=== PATIENT | female | born 1985 | race African-American/Black ===

== ENCOUNTER 2020-03-28 05:05 | Inpatient (IN) | payer OTHER, MEDICAID, SELFPAY ==
[2020-03-28] VITALS (296 sets, daily range): BP systolic 92–159; BP diastolic 43–110; PULSE 56–169; TEMP 35.9–37.1; O2SAT 69–100; BMI 38.4
--- NOTE | 2020-03-28 05:44 | LDADM ---
This patient, Alcira Banegas, was admitted to Labor/Delivery/Recovery [facility] on 03/28/20 at 05:05. Plans for labor, pain management and were discussed with patient. Patient/family oriented to hospital policies and general routines including ID bracelet, bed and alarms, visiting hours, pain management, procedures, bathroom and other care routines, personal items, smoking policy, room service/diet and guest tray routines, security routines, and visiting hours. Patient/Family are encouraged to report perceived risks to care and to ask questions if they do not understand what they are told or what they should do. See OBIX for further documentation.
[2020-03-28 05:49] LABS: Basophils Percent Auto 0.2 % (0.2-1.2); Eosinophils Absolute Auto 0.1 K/mm3 (0-0.3); Eosinophils Percent Auto 0.9 % (0-4.4); Hematocrit 36.7 % (37.0-47.0); Immature Granulocyte Absolute 0.08 K/mm3 (0.00-0.031); Immature Granulocyte Percent A 0.9 % (0-0.5); Lymphocytes Absolute Auto 2.66 K/mm3 (0.9-3.2); Lymphocytes Percent Auto 28.6 % (18.3-44.2); Mean Corpuscular HGB Conc 32.7 g/dl (32-36); Mean Corpuscular Hemoglobin 28.2 pg (26-34); Mean Corpuscular Volume 86.2 fl (80-100); Mean Platelet Volume 10.4 fl (7.4-10.4); Monocytes Percent Auto 11.1 % (2.6-8.5); Neutrophils Absolute Auto 5.4 K/mm3 (1.3-6.7); Neutrophils Percent Auto 58.3 % (45.5-73.1); Platelet Count Result 277 k/mm3 (150-375); Red Blood Count 4.26 M/mm3 (4.2-5.4); Red Cell Distribution Width 13.5 % (11.5-14.5); White Blood Count 9.3 K/mm3 (4.5-10.0)
[2020-03-28] MEDS: OXYTOCIN 30 UNITS/NS 500 ML 30 UNITS/500 ML BAG 6 UNITS IV CONT (05:53)
[2020-03-28] MEDS: LACTATED RINGERS 1,000 ML 125 ML IV CONT ×3 (05:54→11:11)
[2020-03-28 06:02] LABS: Alanine Aminotransferase 17 U/L (4-35); Albumin Level 3.5 g/dL (3.5-5.1); Alkaline Phosphatase 221 U/L (38-126); Anion Gap 7 mmol/L (8-16); Aspartate Amino Transferase 23 U/L (14-36); Bilirubin,Total 0.3 mg/dL (0.2-1.3); Blood Urea Nitrogen 10 mg/dL (7-17); Calcium 9.3 mg/dL (8.4-10.2); Carbon Dioxide 23 mmol/L (22-30); Chloride 104 mmol/L (98-107); Estimated CRCL calculation 97 ml/min; Estimated Glomerular Filt Rate > 60; Glucose 96 mg/dL (65-105); Sodium 134 mmol/L (137-145); Uric Acid 6.4 mg/dL (2.5-7.5)
--- NOTE | 2020-03-28 06:30 | PM.IMHP ---
H&P: HPI History of Present Illness Date/Time: 03/28/20 06:30 Chief complaint: Induction of labor Narrative: Alcira Banegas is a 35 year old female whose last menstrual period 06/22/2019, EDC is 03/28/2020 presents 40 weeks gestation for induction of labor. has been uncomplicated except she is positive for group B strep pending be prophylaxed. The blood pressures have been mildly elevating. She has a history of HSV but has seen no lesions and been on acyclovir 400 daily prevention. Review of Systems Review of Systems: All systems reviewed & are unremarkable except as noted in HPI and below PMFSH Past Medical History Medical History Acid reflux Allergic asthma HPV (human papilloma virus) infection Family History Family History Mother Hypertension Father Diabetes mellitus Social History Social History Smoking status: Never smoker Second hand tobacco smoke exposure: No Alcohol intake: current Drinks per week: 1 Substance use: never Substance use type: does not use Gender identity (if verbalized by the patient): Female Spiritual care concerns: No Meds Home Medications and Allergies Home Medications Medication Instructions Recorded Confirmed Type albuterol sulfate 90 mcg/actuation 1 puff INHALATION Q4H PRN 06/25/19 02/26/20 History aerosol inhaler PNV cmb#95-ferrous fumarate-FA 1 tablet PO DAILY 02/26/20 02/26/20 History [] Allergies Allergy/AdvReac Type Severity Reaction Status Date / Time Penicillins Allergy Mild hives Verified 06/25/19 16:19 Vital Signs Vital Signs - 24 hr 03/28/20 05:55 03/28/20 06:00 03/28/20 06:01 Temperature 97.7 F Pulse Rate 81 89 Blood Pressure 141/97 H 144/98 H Exam Const: General: no acute distress Eyes: General: appearance normal, both eyes and all related structures Neck: Neck: supple and no JVD Thyroid: thyroid normal Resp: Effort & Inspection: normal respiratory effort Auscultation: clear to auscultation bilaterally Cardio: Rate: regular rate Rhythm: regular rhythm GI: Inspection: non-distended GI Palp: Yes Soft to palpation, No Tenderness to palpation present (GI) and No Guarding due to palpation present (GI) Auscultation: normal bowel sounds : General: Yes other ( Cervix 2/ 60%/ -1. FHTs were reassuring) Skin: General skin exam: no rashes or lesions noted Extrem: General: normal to inspection and no edema Psych: Mental Status: mental status grossly normal Affect: normal affect H&P: Results Labs Labs: Short CBC 03/28/20 Range/Units 05:36 WBC 9.3 (4.5-10.0) K/mm3 Hgb 12.0 (12.0-15.0) g/dL Hct 36.7 L (37.0-47.0) % Plt Count 277 (150-375) k/mm3 BMP 03/28/20 05:36 Sodium 134 L Potassium 4.0 Chloride 104 Carbon Dioxide 23 BUN 10 Creatinine 0.90 Glucose 96 Calcium 9.3 Liver Function 03/28/20 Range/Units 05:36 Total Bilirubin 0.3 (0.2-1.3) mg/dL AST 23 (14-36) U/L ALT 17 (4-35) U/L Alkaline Phosphatase 221 H (38-126) U/L Albumin 3.5 (3.5-5.1) g/dL Assessment and Plan Additional Plan impression: Term mildly elevated blood pressure positive GBS Plan: Medical induction of labor. Group B strep prophylaxis. Spontaneous vaginal delivery expected. She has an epidural candidate
[2020-03-28] MEDS: fentaNYL CITRATE INJ (*CRX) 100 MCG/2 ML VIAL 50 MCG IV PUSH (08:42)
--- NOTE | 2020-03-28 09:28 | PM.OBPNVD ---
OB - PN: Subj Subjective Date/time seen: 03/28/20 09:28 getting epidural fhts ok OB - PN: Obj Data Labs CBC & Chem 7: 03/28/20 05:36 03/28/20 05:36 Labs: Laboratory Results - last 24 hr 03/28/20 03/28/20 03/28/20 05:36 05:36 05:36 WBC 9.3 RBC 4.26 Hgb 12.0 Hct 36.7 L MCV 86.2 MCH 28.2 MCHC 32.7 RDW 13.5 Plt Count 277 MPV 10.4 Immature Gran % (Auto) 0.9 H Neut % (Auto) 58.3 Lymph % (Auto) 28.6 [place] % (Auto) 11.1 H Eos % (Auto) 0.9 Baso % (Auto) 0.2 Lymph # (Auto) 2.66 [place] # (Auto) 1.0 H Eos # (Auto) 0.1 Baso # (Auto) 0.0 Abs Immat Gran (auto) 0.08 H Absolute Neuts (auto) 5.4 Absolute Nucleated RBC 0.0 Nucleated RBC % 0.0 Sodium 134 L Potassium 4.0 Chloride 104 Carbon Dioxide 23 Anion Gap 7 L BUN 10 Creatinine 0.90 Estim Creat Clear Calc 97 Estimated GFR > 60 Glucose 96 Uric Acid 6.4 Calcium 9.3 Total Bilirubin 0.3 AST 23 ALT 17 Alkaline Phosphatase 221 H Total Protein 7.0 Albumin 3.5 Blood Type O Positive Antibody Screen Negative OB - PN A/P Time Spent With Patient Time: Total time spent is greater than 50% in coordination of care (as documented) at patient's floor/unit and/or counseling patient:
--- NOTE | 2020-03-28 09:35 | WPDANESEPP ---
Anes - Eval Pre Procedure Procedure: labor epidural Date/Time: 03/28/20 09:35 Surgeon: dianne dickson Preop Diagnosis: pain during labor Pre Op Diagnosis: Induction of labor Patient Data Age: 35 Gender: F Height: 5 ft 6 in Weight: 108 kg Last Vital Signs Temp 36.4 C 03/28/20 08:30 Pulse 93 03/28/20 09:35 BP 134/70 03/28/20 09:35 Pulse Ox 100 03/28/20 09:35 Allergies Allergy/AdvReac Type Severity Reaction Status Date / Time Penicillins Allergy Mild hives Verified 06/25/19 16:19 Home Medications Medication Instructions Recorded Confirmed Type albuterol sulfate 90 mcg/actuation 1 puff INHALATION Q4H PRN 06/25/19 02/26/20 History aerosol inhaler PNV cmb#95-ferrous fumarate-FA 1 tablet PO DAILY 02/26/20 03/28/20 History [] acyclovir 03/28/20 History Laboratory Tests 03/28/20 03/28/20 03/28/20 05:36 05:36 05:36 WBC 9.3 K/mm3 K/mm3 (4.5-10.0) RBC 4.26 M/mm3 M/mm3 (4.2-5.4) Hgb 12.0 g/dL g/dL (12.0-15.0) Hct 36.7 % L % (37.0-47.0) MCV 86.2 fl fl (80-100) MCH 28.2 pg pg (26-34) MCHC 32.7 g/dl g/dl (32-36) RDW 13.5 % % (11.5-14.5) Plt Count 277 k/mm3 k/mm3 (150-375) MPV 10.4 fl fl (7.4-10.4) Immature Gran % (Auto) 0.9 % H % (0-0.5) Neut % (Auto) 58.3 % % (45.5-73.1) Lymph % (Auto) 28.6 % % (18.3-44.2) [place] % (Auto) 11.1 % H % (2.6-8.5) Eos % (Auto) 0.9 % % (0-4.4) Baso % (Auto) 0.2 % % (0.2-1.2) Lymph # (Auto) 2.66 K/mm3 K/mm3 (0.9-3.2) [place] # (Auto) 1.0 K/mm3 H K/mm3 (0.1-0.6) Eos # (Auto) 0.1 K/mm3 K/mm3 (0-0.3) Baso # (Auto) 0.0 K/mm3 K/mm3 (0.0-0.1) Abs Immat Gran (auto) 0.08 K/mm3 H K/mm3 (0.00-0.031) Absolute Neuts (auto) 5.4 K/mm3 K/mm3 (1.3-6.7) Absolute Nucleated RBC 0.0 K/mm3 K/mm3 (0.0-0.012) Nucleated RBC % 0.0 % % (0.0-0.2) Sodium Potassium Chloride Carbon Dioxide Anion Gap BUN Creatinine Estim Creat Clear Calc Estimated GFR Glucose Uric Acid Calcium Total Bilirubin AST ALT Alkaline Phosphatase Total Protein Albumin RPR Pending Blood Type O Positive Antibody Screen Negative 03/28/20 05:36 WBC RBC Hgb Hct MCV MCH MCHC RDW Plt Count MPV Immature Gran % (Auto) Neut % (Auto) Lymph % (Auto) [place] % (Auto) Eos % (Auto) Baso % (Auto) Lymph # (Auto) [place] # (Auto) Eos # (Auto) Baso # (Auto) Abs Immat Gran (auto) Absolute Neuts (auto) Absolute Nucleated RBC Nucleated RBC % Sodium 134 mmol/L L mmol/L (137-145) Potassium 4.0 mmol/L mmol/L (3.4-5.0) Chloride 104 mmol/L mmol/L (98-107) Carbon Dioxide 23 mmol/L mmol/L (22-30) Anion Gap 7 mmol/L L mmol/L (8-16) BUN 10 mg/dL mg/dL (7-17) Creatinine 0.90 mg/dL mg/dL (0.7-1.0) Estim Creat Clear Calc 97 ml/min ml/min Estimated GFR > 60 (59 - ) Glucose 96 mg/dL mg/dL (65-105) Uric Acid 6.4 mg/dL mg/dL (2.5-7.5) Calcium 9.3 mg/dL mg/dL (8.4-10.2) Total Bilirubin 0.3 mg/dL mg/dL (0.2-1.3) AST 23 U/L U/L (14-36) ALT 17 U/L U/L (4-35) Alkaline Phosphatase 221 U/L H U/L (38-126) Total Protein 7.0 g/dL g/dL (6.3-8.2) Albumin 3.5 g/dL g/dL (3.5-5.1) RPR Blood Type Antibody Screen : gestational age (ROSALIND 03/23) Patient hx anesthesia problems: none Family hx anesthesia problems: none PMFSH Past Medical History
[2020-03-28 10:54] LABS: Rapid Plasma Reagin Non-Reactive (NonReactive)
--- NOTE | 2020-03-28 11:40 | P.PNOB_ITS ---
OB - PN: Subj Subjective Date/time seen: 03/28/20 11:40 cx 4.5 by rn exam fhts ok epidural in OB - PN: Obj Data Labs CBC & Chem 7: 03/28/20 05:36 03/28/20 05:36 Labs: Laboratory Results - last 24 hr 03/28/20 03/28/20 03/28/20 05:36 05:36 05:36 WBC 9.3 RBC 4.26 Hgb 12.0 Hct 36.7 L MCV 86.2 MCH 28.2 MCHC 32.7 RDW 13.5 Plt Count 277 MPV 10.4 Immature Gran % (Auto) 0.9 H Neut % (Auto) 58.3 Lymph % (Auto) 28.6 [place] % (Auto) 11.1 H Eos % (Auto) 0.9 Baso % (Auto) 0.2 Lymph # (Auto) 2.66 [place] # (Auto) 1.0 H Eos # (Auto) 0.1 Baso # (Auto) 0.0 Abs Immat Gran (auto) 0.08 H Absolute Neuts (auto) 5.4 Absolute Nucleated RBC 0.0 Nucleated RBC % 0.0 Sodium Potassium Chloride Carbon Dioxide Anion Gap BUN Creatinine Estim Creat Clear Calc Estimated GFR Glucose Uric Acid Calcium Total Bilirubin AST ALT Alkaline Phosphatase Total Protein Albumin RPR Non-reactive Blood Type O Positive Antibody Screen Negative 03/28/20 05:36 WBC RBC Hgb Hct MCV MCH MCHC RDW Plt Count MPV Immature Gran % (Auto) Neut % (Auto) Lymph % (Auto) [place] % (Auto) Eos % (Auto) Baso % (Auto) Lymph # (Auto) [place] # (Auto) Eos # (Auto) Baso # (Auto) Abs Immat Gran (auto) Absolute Neuts (auto) Absolute Nucleated RBC Nucleated RBC % Sodium 134 L Potassium 4.0 Chloride 104 Carbon Dioxide 23 Anion Gap 7 L BUN 10 Creatinine 0.90 Estim Creat Clear Calc 97 Estimated GFR > 60 Glucose 96 Uric Acid 6.4 Calcium 9.3 Total Bilirubin 0.3 AST 23 ALT 17 Alkaline Phosphatase 221 H Total Protein 7.0 Albumin 3.5 RPR Blood Type Antibody Screen OB - PN A/P Time Spent With Patient Time: Total time spent is greater than 50% in coordination of care (as documented) at patient's floor/unit and/or counseling patient:
[2020-03-28] MEDS: ONDANSETRON INJ 4 MG/2 ML VIAL IV PUSH (17:35)
--- NOTE | 2020-03-28 17:51 | PM.OBPNVD ---
OB - PN: Subj Subjective Date/time seen: 03/28/20 17:51 cx 6.5 by rn exam fhts ok OB - PN: Obj Data Labs CBC & Chem 7: 03/28/20 05:36 03/28/20 05:36 Labs: Laboratory Results - last 24 hr 03/28/20 03/28/20 03/28/20 05:36 05:36 05:36 WBC 9.3 RBC 4.26 Hgb 12.0 Hct 36.7 L MCV 86.2 MCH 28.2 MCHC 32.7 RDW 13.5 Plt Count 277 MPV 10.4 Immature Gran % (Auto) 0.9 H Neut % (Auto) 58.3 Lymph % (Auto) 28.6 [place] % (Auto) 11.1 H Eos % (Auto) 0.9 Baso % (Auto) 0.2 Lymph # (Auto) 2.66 [place] # (Auto) 1.0 H Eos # (Auto) 0.1 Baso # (Auto) 0.0 Abs Immat Gran (auto) 0.08 H Absolute Neuts (auto) 5.4 Absolute Nucleated RBC 0.0 Nucleated RBC % 0.0 Sodium Potassium Chloride Carbon Dioxide Anion Gap BUN Creatinine Estim Creat Clear Calc Estimated GFR Glucose Uric Acid Calcium Total Bilirubin AST ALT Alkaline Phosphatase Total Protein Albumin RPR Non-reactive Blood Type O Positive Antibody Screen Negative 03/28/20 05:36 WBC RBC Hgb Hct MCV MCH MCHC RDW Plt Count MPV Immature Gran % (Auto) Neut % (Auto) Lymph % (Auto) [place] % (Auto) Eos % (Auto) Baso % (Auto) Lymph # (Auto) [place] # (Auto) Eos # (Auto) Baso # (Auto) Abs Immat Gran (auto) Absolute Neuts (auto) Absolute Nucleated RBC Nucleated RBC % Sodium 134 L Potassium 4.0 Chloride 104 Carbon Dioxide 23 Anion Gap 7 L BUN 10 Creatinine 0.90 Estim Creat Clear Calc 97 Estimated GFR > 60 Glucose 96 Uric Acid 6.4 Calcium 9.3 Total Bilirubin 0.3 AST 23 ALT 17 Alkaline Phosphatase 221 H Total Protein 7.0 Albumin 3.5 RPR Blood Type Antibody Screen OB - PN A/P Time Spent With Patient Time: Total time spent is greater than 50% in coordination of care (as documented) at patient's floor/unit and/or counseling patient:
[2020-03-29] VITALS (50 sets, daily range): BP systolic 79–153; BP diastolic 41–117; PULSE 80–153; RESP 16–20; TEMP 36.2–37.1; O2SAT 84–100
--- NOTE | 2020-03-29 00:25 | PM.OBPRVD ---
OB - Delivery Note Procedure Delivery date: 03/29/20 Procedure: mil//gbs prophylaxis/repair second degree tear Intrapartal events: None Induction method: AROM Delivery augmentation: pitocin Delivery monitor: external FHT Route of delivery: Episiotomy description: None Laceration description: Perineal - 2nd Degree Delivery repair: vicryl Specimen: No Estimated blood loss (mL): 900 Anesthesia type: Epidural Disposition: floor Baby Date of : 03/29/20 Time of : 00:07 Weeks of gestation at delivery: 40 gender: Male Weight (pounds): 9 Weight (ounces): 0 presentation: vertex position: Right Occiput Anterior Placenta delivery description: Spontaneous cord vessel description: 3 Vessels and Nuchal Cord score one minute: 8 score five minutes: 9 Narrative: vanc x 2 for gbs
[2020-03-29] MEDS: OXYTOCIN 30 UNITS/NS 500 ML 30 UNITS/500 ML BAG 125 UNITS IV CONT (00:35)
[2020-03-29] MEDS: LACTATED RINGERS 1,000 ML 125 ML IV CONT (00:35)
[2020-03-29] MEDS: IBUPROFEN 600 MG TABLET PO ×4 (02:55→22:00)
[2020-03-29] MEDS: BENZOCAINE 20% AER SPR (*SP) 56 GM CAN 1 SPRAY TOPICAL (02:56)
[2020-03-29] MEDS: WITCH HAZEL 40 PADS 1 PAD TOPICAL (02:56)
--- NOTE | 2020-03-29 06:00 | PC.NURSE ---
Discontinued camara catheter and vaginal packing at 0600
--- NOTE | 2020-03-29 07:10 | PM.OBPNVD ---
OB - PN: Subj Subjective Date/time seen: 03/29/20 07:10 Patient comments: no complaints and pain well controlled baby status: doing well and nursing well OB - PN: Obj Data Labs CBC & Chem 7: 03/28/20 05:36 03/28/20 05:36 Labs: Laboratory Results - last 24 hr 03/28/20 03/28/20 05:36 05:36 RPR Non-reactive Blood Type O Positive Antibody Screen Negative OB - PN A/P Plan day: 1 Plan: routine care Time Spent With Patient Time: Total time spent is greater than 50% in coordination of care (as documented) at patient's floor/unit and/or counseling patient: Time with patient: less than 15 minutes Review of Systems Review of Systems: All systems reviewed & are unremarkable except as noted in HPI and below Exam Const: General: no acute distress Eyes: General: appearance normal, both eyes and all related structures Neck: Neck: supple and no JVD Thyroid: thyroid normal Resp: Effort & Inspection: normal respiratory effort Auscultation: clear to auscultation bilaterally Cardio: Rate: regular rate Rhythm: regular rhythm GI: Inspection: non-distended GI Palp: Yes Soft to palpation, No Tenderness to palpation present (GI) and No Guarding due to palpation present (GI) Auscultation: normal bowel sounds : General: Yes bladder normal to palpation External Female Exam: normal external appearance Speculum Exam - Vagina: normal vaginal discharge and No vaginal bleeding Speculum Exam - Cervix: nontender Bimanual exam- vagina & uterus: bladder normal to palpation and No Cervical tenderness present OB/external & speculum: No vaginal bleeding Skin: General skin exam: no rashes or lesions noted Extrem: General: normal to inspection and no edema Psych: Mental Status: mental status grossly normal Affect: normal affect
[2020-03-29] MEDS: LANOLIN (LANSINOH) 7.5 GM CREAM 1 APPLIC TOPICAL (08:26)
[2020-03-29] MEDS: ACETAMINOPHEN 325 MG TABLET 650 MG PO ×2 (08:26→16:26)
[2020-03-29] MEDS: DOCUSATE SODIUM 100 MG CAPSULE PO ×2 (08:26→16:26)
[2020-03-29] MEDS: MULTIVIT/MIN/PREN/FOL AC/IRON TABLET 1 TAB PO (08:26)
--- NOTE | 2020-03-29 09:10 | PC.NURSE ---
Consulted with patient, mother reports infant has been sleepy and has only fed for 5-10 minutes since . Mother has been given a nipple shield for feedings. Stressed the importance of waking infant to feed every three hours, calling out for assistance if unable to latch. Discussed nipple shield precautions and possible complications. Reviewed instructions on application and cleaning of shield.Patient able to return demonstration on proper application of shield. Discussed the need to initiate pumping if continues to nurse with the shield. Patient verbalizes understanding. Reviewed infant feeding cues, frequencies, duration of feedings, feeding elimination flow sheet, and signs of adequate intake. Demonstrated stimulation techniques to wake for feeding. Assisted with to breast without shield. Reviewed positioning/alignment in cross cradle, holding breast in U hold and guided asymmetrical latch on. Infant was sleepy making weak attempts and unable to latch correctly. With shield in place, was able to latch to shield, making weak efforts to suckle with long pausing. Attempt for 10 minutes, mother wishes to be bottle fed at this time. Mother has per pump she would like to use.
--- NOTE | 2020-03-29 12:40 | PC.NURSE ---
Mother called out for assist with feeding. Demonstrated stimulation techniques to wake for feeding. Assisted with to breast using shield. Reviewed positioning/alignment, holding breast and asymmetrical latch on. Several attempts before was able to latch correctly. latched with unorganized suckling, and began with short chew sucks increasing to nursing eagerly, with steady draws and occasional swallowing noted. Shield was removed, was able to latch correctly and continue nursing with eager rhythmic draws and freq swallowing noted. Reviewed signs of a correct latch, effective nursing and suck swallow ratio. Infant was able to maintain latch without discomfort to mother. Nipple care reviewed. Instructed mother to call out for RN assistance if she is unable to latch for feeding or she has discomfort with nursing. Instructed feeding should be initiated three hours from start of last feeding or if feeding cues are noted before. Mother voiced understanding of information shared.
[2020-03-30] MEDS: IBUPROFEN 600 MG TABLET PO ×3 (04:05→21:24)
[2020-03-30 06:02] LABS: Hematocrit 21.1 % (37.0-47.0)
[2020-03-30 06:04] LABS: Hemoglobin 6.7 g/dL (12.0-15.0)
--- NOTE | 2020-03-30 07:22 | WPDANLDPN2 ---
Anes-Prog Note L&D Date/Time: 03/30/20 07:22 Comfortable throughout: labor and delivery Neuraxial method: epidural Epidural/Spinal procedure site: clean & non-tender Neuro status: Neuro function grossly intact. Cardiovascular status: normal Respiratory status: normal Airway patency: baseline Mental status: baseline Post-Op hydration status: normal Vital Signs: Last Vital Signs Temp 37.1 C 03/29/20 18:44 Pulse 109 H 03/29/20 18:44 Resp 20 03/29/20 18:44 BP 144/89 H 03/29/20 18:44 Pulse Ox 100 03/29/20 08:00 Pain score (VAS): 0 I/O: Intake & Output 03/29/20 03/29/20 03/30/20 15:59 23:59 07:59 Intake Total 800 Output Total 600 Balance 200 Post-procedural complaints: none Patient feedback: Patient satisfied with anesthetic care.
--- NOTE | 2020-03-30 07:42 | PM.OBPNVD ---
OB - PN: Subj Subjective Date/time seen: 03/30/20 07:42 Patient comments: no complaints and pain well controlled baby status: doing well and nursing well OB - PN: Obj Data Labs CBC & Chem 7: 03/30/20 04:01 03/28/20 05:36 Labs: Laboratory Results - last 24 hr 03/30/20 04:01 Hgb 6.7 L* D Hct 21.1 L OB - PN A/P Plan day: 1 Plan: routine care Time Spent With Patient Time: Total time spent is greater than 50% in coordination of care (as documented) at patient's floor/unit and/or counseling patient: Time with patient: less than 15 minutes Review of Systems Review of Systems: All systems reviewed & are unremarkable except as noted in HPI and below Exam Const: General: no acute distress Eyes: General: appearance normal, both eyes and all related structures Neck: Neck: supple and no JVD Thyroid: thyroid normal Resp: Effort & Inspection: normal respiratory effort Auscultation: clear to auscultation bilaterally Cardio: Rate: regular rate Rhythm: regular rhythm GI: Inspection: non-distended GI Palp: Yes Soft to palpation, No Tenderness to palpation present (GI) and No Guarding due to palpation present (GI) Auscultation: normal bowel sounds : General: Yes bladder normal to palpation External Female Exam: normal external appearance Speculum Exam - Vagina: normal vaginal discharge and No vaginal bleeding Speculum Exam - Cervix: nontender Bimanual exam- vagina & uterus: bladder normal to palpation and No Cervical tenderness present OB/external & speculum: No vaginal bleeding Skin: General skin exam: no rashes or lesions noted Extrem: General: normal to inspection and no edema Psych: Mental Status: mental status grossly normal Affect: normal affect
[2020-03-30 08:05] VITALS: BP 121/75; PULSE 85; RESP 16; TEMP 36.8; O2SAT 94
[2020-03-30] MEDS: DOCUSATE SODIUM 100 MG CAPSULE PO ×2 (08:42→17:06)
[2020-03-30] MEDS: MULTIVIT/MIN/PREN/FOL AC/IRON TABLET 1 TAB PO (08:42)
[2020-03-30] MEDS: POLYSACCHARIDE IRON COMPLEX 150 MG CAPSULE PO ×2 (08:42→17:06)
[2020-03-30] MEDS: ACETAMINOPHEN 325 MG TABLET 650 MG PO ×3 (08:43→21:25)
[2020-03-30 20:26] VITALS: BP 130/78; PULSE 94; RESP 15; TEMP 36.9
--- NOTE | 2020-03-31 05:35 | PM.DS ---
DS: Admitting Diagnosis Admitting Diagnosis Admitting Diagnosis: Induction of labor term iup DS: Summary Time Spent with Patient Time attestation: Total time spent providing and/or coordinating discharge services: the patient was admitted for induction of labor. All she underwent spontaneous vaginal delivery. She did have a fair amount of blood loss prior to her delivery secondary to a vaginal laceration. Her hemoglobin was low but she was without orthostatic changes. She was breast feeding, voiding without difficulty, ambulating and generally without complaints. Routine discharge instructions were given. Her condition upon discharge was stable Exam Const: General: no acute distress Eyes: General: appearance normal, both eyes and all related structures Neck: Neck: supple and no JVD Thyroid: thyroid normal Resp: Effort & Inspection: normal respiratory effort Auscultation: clear to auscultation bilaterally Cardio: Rate: regular rate Rhythm: regular rhythm GI: Inspection: non-distended GI Palp: Yes Soft to palpation, No Tenderness to palpation present (GI) and No Guarding due to palpation present (GI) Auscultation: normal bowel sounds : General: Yes bladder normal to palpation External Female Exam: normal external appearance Speculum Exam - Vagina: normal vaginal discharge and No vaginal bleeding Speculum Exam - Cervix: nontender Bimanual exam- vagina & uterus: bladder normal to palpation and No Cervical tenderness present OB/external & speculum: No vaginal bleeding Skin: General skin exam: no rashes or lesions noted Extrem: General: normal to inspection and no edema Psych: Mental Status: mental status grossly normal Affect: normal affect DS: Data Data Completed and Pending Labs on day of discharge: Labs from last 24 hours 03/30/20 04:01 Hgb 6.7 L* D Hct 21.1 L Discharge Plan Discharge Attending physician on discharge: Scott Cardona Discharging Clinician: Scott Cardona Patient Disposition: Home, Self-Care Activity: may shower, no straining, may drive after 2 weeks and pelvic rest Diet: heart healthy Wound Care Instructions: follow printed instructions Patient Instructions: Antibiotic Form Stand Alone Forms: General Discharge Information Follow-up/Referrals: Scott Cardona MD [Physician] - Discharge Medications: Continued albuterol sulfate [ProAir HFA] 90 mcg/actuation HFA aerosol inhaler 1 puff INHALATION Q4H PRN (Reason: Wheezing) RF: 0 PNV cmb#95-ferrous fumarate-FA [] 28 mg iron- 800 mcg Tablet 1 tablet PO DAILY RF: 0 acyclovir 400 mg tablet RF: 0 Date of admission: 03/28/20 05:05 Primary Care Provider: June Garcia Admitting Provider: Scott Cardona Attending physician on admission: Scott Cardona
--- NOTE | 2020-03-31 05:37 | PM.OBPNVD ---
OB - PN: Subj Subjective Date/time seen: 03/31/20 05:37 Patient comments: no complaints and pain well controlled baby status: doing well and nursing well OB - PN: Obj Data Labs CBC & Chem 7: 03/30/20 04:01 03/28/20 05:36 Labs: Laboratory Results - last 24 hr 03/30/20 04:01 Hgb 6.7 L* D Hct 21.1 L OB - PN A/P Plan day: 2 Plan: routine care, discharge home and follow up 6 weeks Time Spent With Patient Time: Total time spent is greater than 50% in coordination of care (as documented) at patient's floor/unit and/or counseling patient: Time with patient: less than 15 minutes Review of Systems Review of Systems: All systems reviewed & are unremarkable except as noted in HPI and below Exam Const: General: no acute distress Eyes: General: appearance normal, both eyes and all related structures Neck: Neck: supple and no JVD Thyroid: thyroid normal Resp: Effort & Inspection: normal respiratory effort Auscultation: clear to auscultation bilaterally Cardio: Rate: regular rate Rhythm: regular rhythm GI: Inspection: non-distended GI Palp: Yes Soft to palpation, No Tenderness to palpation present (GI) and No Guarding due to palpation present (GI) Auscultation: normal bowel sounds : General: Yes bladder normal to palpation External Female Exam: normal external appearance Speculum Exam - Vagina: normal vaginal discharge and No vaginal bleeding Speculum Exam - Cervix: nontender Bimanual exam- vagina & uterus: bladder normal to palpation and No Cervical tenderness present OB/external & speculum: No vaginal bleeding Skin: General skin exam: no rashes or lesions noted Extrem: General: normal to inspection and no edema Psych: Mental Status: mental status grossly normal Affect: normal affect
[2020-03-31 07:00] VITALS: BP 125/79; PULSE 97; RESP 16; TEMP 36.7; O2SAT 99
[2020-03-31] MEDS: IBUPROFEN 600 MG TABLET PO (07:06)
[2020-03-31] MEDS: ACETAMINOPHEN 325 MG TABLET 650 MG PO (07:06)
[2020-03-31] MEDS: MULTIVIT/MIN/PREN/FOL AC/IRON TABLET 1 TAB PO (07:07)
[2020-03-31] MEDS: POLYSACCHARIDE IRON COMPLEX 150 MG CAPSULE PO (07:07)
[2020-03-31] MEDS: DOCUSATE SODIUM 100 MG CAPSULE PO (07:07)
--- NOTE | 2020-03-31 10:00 | PC.NURSE ---
Mother will pump and bottle feed EBM/formula. Mother is feeding as required and waking to feed if needed. is currently meeting outcomes for weight, output, jaundice and feeding frequencies. Mother states she feels confident to continue current feeding plan at home. Reviewed transition to breast milk, signs of adequate intake, and engorgement/relief. Instructed to call ICP if intake/output less than required. Reviewed regular medications mother is taking. Information provided per Alisa. Reviewed community resources on the [facility] website and in the Mom/Baby guide. Information on outpatient services provided. Mother has no further questions at this time.
--- NOTE | 2020-03-31 14:30 | PC.NURSE ---
Consult with pt., mother reports she began bottle feeding during the night, was fussy and not satisfied. Discussed pumping, mother states she has not been pumping. Reviewed stimulation and milk supply. Assisted mother with instructions on her home breast pump care and usage, pumping schedule, nipple care, and collection and storage of breast milk. Encouraged [id number], breast massage and manual expression to stimulate supply. Assessed patient for correct flange size, placement and draw. Patient verbalizes and demonstrates understanding of instructions.
[2020-04-01 13:26] VITALS: BP 124/87; RESP 18; TEMP 36.7; O2SAT 100
== END 2020-03-31 11:48 | disposition home or self-care (01) | DRG 806 ==
LOC: ANHLDR 03-29 01:08 → ANHOB2 03-29 04:11
PROVIDERS: Admitting Provider Obstetrics & Gynecology; PCP Family Medicine; Visit Provider Obstetrics & Gynecology
DX: O99.824 Streptococcus B carrier state complicating childbirth (principal); O98.32 Other infections with a predominantly sexual mode of transmission complicating childbirth; Z37.0 Single live birth; Z3A.40 40 weeks gestation of pregnancy; O70.1 Second degree perineal laceration during delivery; O69.81X0 Labor and delivery complicated by cord around neck, without compression, not applicable or unspecified; A60.00 Herpesviral infection of urogenital system, unspecified; K21.9 Gastro-esophageal reflux disease without esophagitis; O99.62 Diseases of the digestive system complicating childbirth; R03.0 Elevated blood-pressure reading, without diagnosis of hypertension; O99.214 Obesity complicating childbirth; E66.9 Obesity, unspecified; O99.52 Diseases of the respiratory system complicating childbirth; J45.909 Unspecified asthma, uncomplicated
CPT/HCPCS: 36415; 80053; 84550; 85014; 85018; 85025; 86592; 86850; 86900; 86901; A9270; J2405; J2590; J2795; J3010; J3370; J7120